=== PATIENT | female | born 1990 | race African-American/Black ===

== ENCOUNTER 2019-03-27 12:02 | Emergency (ER) | payer MEDICAID ==
[~2019-03-27] VITALS: Ht 167.6 cm; Wt 68.0 kg
[2019-03-27] MEDS ORDERED: MORPHINE SULFATE 4 MG/ML CPJ (NOT FOR IM USE) IV STA (12:16)
[2019-03-27] MEDS ORDERED: SODIUM CHLORIDE 0.9% 1,000 ML IV ONE (12:16)
[2019-03-27] MEDS ORDERED: ONDANSETRON HCL 4MG/2ML INJ IV STA (12:16)
[2019-03-27] MEDS ORDERED: FAMOTIDINE 20MG/2ML VIAL IV ONE (12:30)
[2019-03-27 13:04] LABS: CLARITY URINE CLEAR (CLEAR); COLOR URINE YELLOW (YELLOW); KETONES URINE 1+ (NEGATIVE); LEUKOCYTE ESTERASE URINE NEGATIVE (NEGATIVE); NITRITE URINE NEGATIVE (NEGATIVE); OCCULT BLOOD URINE NEGATIVE (NEGATIVE); PROTEIN URINE 1+ (NEGATIVE); SPECIFIC GRAVITY URINE 1.029 (1.005-1.030)
[2019-03-27 13:15] LABS: *AMPHETAMINES SCREEN URINE NEGATIVE (NEGATIVE)
[2019-03-27 13:16] LABS: *BARBITURATES SCREEN URINE NEGATIVE (NEGATIVE); *BENZODIAZEPINES SCREEN URINE NEGATIVE (NEGATIVE); *COCAINE SCREEN URINE NEGATIVE (NEGATIVE); METHADONE URINE SCREEN NEGATIVE (NEGATIVE); OPIATES URINE SCREEN NEGATIVE (NEGATIVE); PHENCYCLIDINE URINE SCREEN NEGATIVE (NEGATIVE)
[2019-03-27 13:24] LABS: CANNABINOID URINE SCREEN PRESUMTIVE POSITIVE (NEGATIVE)
[2019-03-27 13:51] LABS: HEMATOCRIT. 40.8 % (36.0-48.0); HEMOGLOBIN. 13.7 g/dL (12.0-16.0); MEAN CORPUSCULAR HEMOGLOBIN 32.7 pg (28.0-32.0); MEAN CORPUSCULAR VOLUME 97.4 fL (81.0-99.0); PLATELET 203 x1000/uL (130-400); RED BLOOD CELL COUNT 4.19 mill/uL (4.2-5.4); RED CELL DISTRIBUTION WIDTH 13.5 % (11.6-14.6)
[2019-03-27 13:56] LABS: CHLORIDE 109 mEq/L (98-107)
[2019-03-27 14:00] LABS: HCG SCREEN NEGATIVE
[2019-03-27 14:20] LABS: PLATELET ESTIMATE NORMAL
[2019-03-27 17:00] VITALS: BP 138/79
== END 2019-03-27 17:00 | disposition home or self-care (01) ==
LOC: ER 12:19
DX: R10.13 Epigastric pain (principal); R11.2 Nausea with vomiting, unspecified; R39.15 Urgency of urination; I10 Essential (primary) hypertension; I51.7 Cardiomegaly; Z88.0 Allergy status to penicillin
CPT/HCPCS: 36415; 71045; 80053; 80305; 81003; 81025; 82962; 83880; 84484; 84703; 85025; 93005; 96361; 96374; 96375; 99284; J2270; J2405; J3490; J7030

== ENCOUNTER 2022-07-19 18:34 | Emergency (ER) | payer MEDICAID ==
[~2022-07-19] VITALS: Ht 170.2 cm; Wt 118.0 kg
[2022-07-19 18:41] VITALS: BP 172/101
== END 2022-07-19 22:14 | disposition left against medical advice (07) ==
LOC: ER 20:11
DX: Z53.21 Procedure and treatment not carried out due to patient leaving prior to being seen by health care provider (principal)
CPT/HCPCS: Z7610 ×3